=== PATIENT | female | born 2000 | race African-American/Black ===

== ENCOUNTER 2021-04-06 10:20 | Outpatient (CLI) | payer BC, SELFPAY ==
[2021-04-06 20:57] LABS: Alanine Aminotransferase 20 U/L (4-35); Albumin Level 4.3 g/dL (3.5-5.1); Alkaline Phosphatase 91 U/L (38-126); Anion Gap 8 mmol/L (8-16); Aspartate Amino Transferase 26 U/L (14-36); Bilirubin,Total 0.4 mg/dL (0.2-1.3); Blood Urea Nitrogen 10 mg/dL (7-17); Carbon Dioxide 25 mmol/L (22-30); Chloride 107 mmol/L (98-107); Cholesterol 135 mg/dL (0-200); Estimated Glomerular Filt Rate > 60; Glucose 101 mg/dL (65-110); HDL Direct 48 mg/dL; Sodium 140 mmol/L (137-145); Triglycerides 38 mg/dL (<150)
[2021-04-06 21:09] LABS: LDL Cholesterol Direct 78 mg/dL
[2021-04-06 21:10] LABS: Free T4 Free Thyroxine 1.08 ng/mL (0.78-2.19)
[2021-04-06 23:47] LABS: Hemoglobin A1C 5.3 % (<5.7)
[2021-04-11 10:30] LABS: Testosterone Free 2.7 pg/mL (0.1-6.4); Testosterone Total 15 ng/dL (2-45)
[2021-04-13 22:53] LABS: Estradiol, Ultrasensitive 49 pg/mL
[2021-04-16 07:26] LABS: IGFBP-1 <5
== END 2021-04-06 10:21 | disposition home or self-care (01) ==
LOC: ANHASCLAB 10:26
PROVIDERS: PCP Pediatrics; Visit Provider Pediatrics Pediatric Endocrinology
DX: E23.0 Hypopituitarism (principal)
CPT/HCPCS: 36415; 80053; 80061; 82670; 83036; 84402; 84403; 84439

== ENCOUNTER 2023-09-08 14:05 | Outpatient (CLI) | payer BC, SELFPAY ==
--- NOTE | ~2023-09-08 | XR_ITS ---
Thoracic spine: Clinical Indication: Back pain AP and lateral views were performed. No fracture is seen. There is mild S-shaped scoliosis of the thoracic spine. The intervertebral disc spaces appear normal. Paravertebral soft tissues appear normal. Impression: Mild S-shaped scoliosis of the thoracic spine. Reviewed, dictated and finalized at [facility]. [employer] IN[employer] Impression: Mild S-shaped scoliosis of the thoracic spine.
--- NOTE | ~2023-09-08 | XR_ITS ---
Lumbosacral Spine: AP and lateral views Clinical History: Pain Findings: There is probable levoscoliosis of the thoracolumbar spine. No fracture or subluxation seen otherwise. The intervertebral disc spaces are preserved. The sacroiliac joints are normally outline d. Impression: Levoscoliosis of the thoracolumbar spine. Reviewed, dictated and finalized at [facility]. [employer] Impression: Levoscoliosis of the thoracolumbar spine.
== END 2023-09-08 14:06 | disposition home or self-care (01) ==
LOC: ANHIMG 14:10
PROVIDERS: PCP Pediatrics; Visit Provider Internal Medicine
DX: M54.50 Low back pain, unspecified (principal); M41.9 Scoliosis, unspecified
CPT/HCPCS: 72072; 72100

== ENCOUNTER 2023-10-28 17:44 | Emergency (ER) | payer BC, SELFPAY ==
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
[2023-10-28 17:47] VITALS: BP 128/68; PULSE 94; RESP 18; TEMP 36.6; O2SAT 98
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
[2023-10-28] MEDS: ACETAMINOPHEN 500 MG TABLET 1000 MG PO (18:18)
== END 2023-10-28 19:08 | disposition home or self-care (01) ==
LOC: ANHED 18:52
PROVIDERS: Emergency Provider Physician Assistant; PCP Internal Medicine
DX: S16.1XXA Strain of muscle, fascia and tendon at neck level, initial encounter (principal); S50.01XA Contusion of right elbow, initial encounter; S70.01XA Contusion of right hip, initial encounter; Z96.21 Cochlear implant status; V43.52XA Car driver injured in collision with other type car in traffic accident, initial encounter
CPT/HCPCS: 72125; 73080; 73502; 99284; A9270

== ENCOUNTER 2025-05-22 15:30 | Outpatient (RCR) | payer BC, SELFPAY ==
--- NOTE | 2025-03-04 16:29 | PCPTNOTE ---
pt was 15 minutes late for initial evaluation.
--- NOTE | 2025-03-05 07:54 | OPREHPOC ---
Outpatient Therapy Plan of Care This is a Multidisciplinary Plan of Care that may contain components documented by all disciplines (PT, OT, and ST.) PT Problem 1 PT Problem #1 Knowledge Deficit PT Goal 1 Goal / Goal Update *independent with HEP and compression garments * education for skin care and lipedema/lymphedema management Target Visit 8 PT Problem 2 PT Problem #2 Impaired Lymphatic System PT Goal 1 Goal / Goal Update decrease lymphedema and lipedema over LE's to improve mobility and decrease pain: circumferential measurements to 72 cm: 1* R 830 cm 2* L 830 cm no edema over dorsum of foot 3* R 4* L 5* visible malleoli on L Target Visit 8
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
--- NOTE | 2025-04-23 07:54 | OPREHPOC ---
Outpatient Therapy Plan of Care This is a Multidisciplinary Plan of Care that may contain components documented by all disciplines (PT, OT, and ST.) PT Problem 1 PT Problem #1 Knowledge Deficit PT Goal 1 Goal / Goal Update *independent with HEP and compression garments * education for skin care and lipedema/lymphedema management 04-22-25 progress goals partially met; she does not have compression garments yet continue education and towards goals Target Visit 16 PT Problem 2 PT Problem #2 Impaired Lymphatic System PT Goal 1 Goal / Goal Update decrease lymphedema and lipedema over LE's to improve mobility and decrease pain: circumferential measurements to 72 cm: 1* R 830 cm 2* L 830 cm no edema over dorsum of foot 3* R 4* L 5* visible malleoli on L 04-22-25 progress goals 3,4 met continue towards other goals Target Visit 16
--- NOTE | 2025-04-23 07:54 | PTOPPROG ---
Assessment and note entered by Erin Alegre, PT, CLT Assessment Status Progress ICD-10 Condition Codes (PT) Lymphedema I89.0 Onset chronic Subjective Information received the home pump by delivery, have to call and set up a time for set up of it; L ankle sore and hurts some; have been doing the exercises and self massage; Assessment PT Clinical Summary Jose Armando has received 8 PT sessions, for treatment of bilateral LE lymphedema. With today's assessment: the circumferential measurement of her LE's up to 72 cm: R is 898.7 cm, increased by 39.1 cm and L is 885.7 cm, increased by 23.1 cm, compared to the initial evaluation; reported pain rating from 0-5/10 to 0 -10/10 in L leg and ankle; functional self rating of LE limitations in activity is the same at 5%; reported standing tolerance before pain increased from 8 hours to 4 hours; education to pt on self massage, skin monitor, LE exercises, lymphedema, lipedema, compression garments- options for group home compression. Awaiting insurance authorization and obtaining compression leggings and ankle garments, to manage her lipedema/lymphedema combination. She has just received her home compression pump, but it has not yet been set up or education from the company on it. The goals were partially met. Continue lymphedema treatment. Plan of Care Interventions Intermittent Compression Pump,Manual Lymph Drainage,Patient/Caregiver Education,Therapeutic Activities,Therapeutic Exercise,Self-Care/Home Management PT Services Indicated Yes Treatment Frequency and 1-2x/wk for 8 visits Duration These treatments will address the objective and functional deficits as defined above. The patient will be advanced safely and appropriately in order for the patient to progress towards his/her prior level of function. Additional exercises will be introduced and as well as a comprehensive home exercise program upon discharge, if needed, ?to ensure carryover of functional gains achieved in the clinic. This treatment plan has been reviewed and agreement upon by the patient.
--- NOTE | 2025-05-29 15:42 | PCPTNOTE ---
pt called and canceled today's appointment, due to not having her compression garment yet.
== END 2025-06-02 23:59 | disposition home or self-care (01) ==
LOC: ANHPT 15:30
PROVIDERS: PCP Family Medicine; Visit Provider Family Medicine
DX: I89.0 Lymphedema, not elsewhere classified (principal)
CPT/HCPCS: 97016; 97110; 97140; 97161; 97530